=== PATIENT | female | born 1940 | race Caucasian/White ===

== ENCOUNTER → 2023-12-10 14:08 | Outpatient (CLI) | payer MEDICARE, BC, OTHER, SELFPAY ==
--- NOTE | 2023-12-10 | DI.RAD_ITS ---
Exam(s) XR SACROILIAC JOINTS EXAM: XR SACROILIAC JOINTS CLINICAL HISTORY: SACROILIAC JOINT PAIN, M53.3. TECHNIQUE: 2D digital imaging was performed. COMPARISON: No exams were available for comparison FINDINGS: Bones: No fracture is present. No bony destructive lesion is seen. Severe degenerative disc changes noted from L2-3 through L5-S1. SI Joint: No fusion, erosions or sclerosis is seen. Mild degenerative spurring right greater than lef t. Spurring at pubic symphysis. Hip joint spaces are maintained. Soft Tissue: Normal. 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 DATA REPOSITORY: RADIATION DOSE DELIVERED:
== END ==
PROVIDERS: PCP Internal Medicine; Visit Provider Physician Assistant Medical
DX: M53.3 Sacrococcygeal disorders, not elsewhere classified (principal)
CPT/HCPCS: 72202